=== PATIENT | female | born 1965 | race Caucasian/White ===

== ENCOUNTER → 2017-11-01 | Outpatient (CLI) | payer BC ==
--- NOTE | 2017-11-03 11:50 | MM ---
Reason for exam: screening (asymptomatic). History: Patient is postmenopausal, has history of other cancer at age 46, and is nulliparous. Family history of breast cancer in mother at age 70. Physical Findings: A clinical breast exam by your physician is recommended on an annual basis and results should be correlated with mammographic findings. MG Screening Mammo w CAD Bilateral CC and MLO view(s) were taken. There are scattered fibroglandular densities. No significant changes when compared with prior studies. ASSESSMENT: Negative, BI-RAD 1 RECOMMENDATION: Routine screening mammogram of both breasts in 1 year.
== END ==
LOC: RADMAMWWP 15:17
PROVIDERS: ATTEND Family Medicine
DX: Z12.31 Encounter for screening mammogram for malignant neoplasm of breast (principal)
CPT/HCPCS: 77067

== ENCOUNTER 2021-03-11 10:47 | Emergency (ER) | payer BC ==
[2021-03-11 11:45] VITALS: BP 118/81; PULSE 89; RESP 20; TEMP 98
[2021-03-11] MEDS ORDERED: SODIUM CHLORIDE 0.9% 1,000 ML IV STA (12:11)
[2021-03-11] MEDS ORDERED: ONDANSETRON 4 MG/2 ML VIAL IVP STA (12:11)
--- NOTE | 2021-03-11 12:20 | ED ---
General Adult HPI - General Chief complaint: Nausea/Vomiting/Diarrhea Stated complaint: vomiting Time Seen by Provider: 03/11/21 11:51 Source: patient Mode of arrival: wheelchair Limitations: no limitations - History of Present Illness Initial comments: 65-year-old female with a past medical history of Crohn's disease on Remicade presents to the emergency room for chief, no nausea vomiting. Patient states she cut her right index finger cleaning a fish tank last week. States that on Tuesday she started some redness over the area and her right arm started hurting. She went to her doctor on Tuesday who put her on Keflex and Bactrim. Patient states because of her Crohn's she does not tolerate oral antibiotics. States that since she started then she has had nausea vomiting. She then got her Covid booster yesterday and her symptoms worsened. patient is concerned she may need IV antibiotics for her fever as well as control of her nausea vomiting. Patient has no other complaints at this time including shortness of breath, chest pain, abdominal pain, nausea or vomiting, headache, or visual changes. - Related Data Home Medications Medication Instructions Recorded Confirmed Cephalexin [Keflex] 1,000 mg PO Q12HR 03/11/21 03/11/21 Sulfamethoxazole/Trimethoprim 1 tab PO Q12H 03/11/21 03/11/21 [Bactrim DS 800-160 mg] Previous Rx's Medication Instructions Recorded Bacitracin Zinc/Polymyxin B 1 applic TOPICAL TID 10 Days #15 gm 03/11/21 [Bacitracin-Polymyxin Ointment] Ondansetron [Zofran ODT] 4 mg PO Q8HR PRN #15 tab 03/11/21 Allergies Allergy/AdvReac Type Severity Reaction Status Date / Time No Known Allergies Allergy Verified 03/11/21 13:39 Review of Systems ROS Statement: Those systems with pertinent positive or pertinent negative responses have been documented in the HPI. ROS Other: All systems not noted in ROS Statement are negative. Past Medical History Past Medical History: Cancer Additional Past Medical History / Comment(s): crohns, kidney stones, skin cancer History of Any Multi-Drug Resistant Organisms: None Reported Past Surgical History: Appendectomy, Hysterectomy Past Psychological History: No Psychological Hx Reported Smoking Status: Never smoker Past Alcohol Use History: None Reported Past Drug Use History: Marijuana General Exam - General Exam Comments Initial Comments: there is a small laceration noted to the radial aspect of the right second digit measuring less than 1 cm. There is minimal erythema surrounding it consistent with granulation tissue. She has full range of motion of all digits. Full range motion of the hand and wrist and forearm. There is no edema or erythema of the finger, hand or forearm Limitations: no limitations General appearance: alert, in no apparent distress Head exam: Present: atraumatic Eye exam: Present: normal appearance, PERRL, EOMI. Absent: scleral icterus, conjunctival injection ENT exam: Present: normal exam, mucous membranes moist Neck exam: Present: normal inspection, full ROM. Absent: tenderness Respiratory exam: Present: normal lung sounds bilaterally. Absent: respiratory distress, wheezes Cardiovascular Exam: Present: regular rate, normal rhythm, normal heart sounds Extremities exam: Present: normal capillary refill (cap refill < 2 seconds in all digits of the right hand.), other Course Vital Signs 03/11/21 11:40 Temperature 98.0 F Pulse Rate 89 Respiratory 20 Rate Blood Pressure 118/81 O2 Sat by Pulse 97 Oximetry Medical Decision Making - Medical Decision Making HPI physical exam as documented. Vitals stable. Patient afebrile. No evidence of significant infection of the right second digit. There is a wound there however there is no spreading or streaking redness, swelling, or difficulty moving the fingers. Laboratory evaluation was initiated, unremarkable. Leukocytosis likely related to vomiting. Patient was also evaluated by Dr. Head who is agreeable. We will culture the area and continue patient on Keflex i nstead of Bactrim until that time. We will give Zofran and encourage her to take this after eating. She will follow up on culture results or return to the emergency room for worsening symptoms. - Lab Data Result diagrams: 03/11/21 12:27 03/11/21 12:27 Lab Results 03/11/21 03/11/21 Range/Units 12:27 12:27 WBC 13.0 H (3.8-10.6) k/uL RBC 4.25 (3.80-5.40) m/uL Hgb 13.4 (11.4-16.0) gm/dL Hct 39.5 (34.0-46.0) % MCV 93.0 (80.0-100.0) fL MCH 31.6 (25.0-35.0) pg MCHC 34.0 (31.0-37.0) g/dL RDW 12.4 (11.5-15.5) % Plt Count 282 (150-450) k/uL MPV 8.3 Neutrophils % 74 % Lymphocytes % 22 % Monocytes % 2 % Eosinophils % 1 % Basophils % 0 % Neutrophils # 9.7 H (1.3-7.7) k/uL Lymphocytes # 2.9 (1.0-4.8) k/uL Monocytes # 0.3 (0-1.0) k/uL Eosinophils # 0.1 (0-0.7) k/uL Basophils # 0.0 (0-0.2) k/uL Sodium 135 L (137-145) mmol/L Potassium 4.5 (3.5-5.1) mmol/L Chloride 109 H (98-107) mmol/L Carbon Dioxide 22 (22-30) mmol/L Anion Gap 4 mmol/L BUN 12 (7-17) mg/dL Creatinine 0.68 (0.52-1.04) mg/dL Est GFR (CKD-EPI)AfAm >90 (>60 ml/min/1.73 sqM) Est GFR (CKD-EPI)NonAf >90 (>60 ml/min/1.73 sqM) Glucose 115 H (74-99) mg/dL Calcium 9.2 (8.4-10.2) mg/dL Total Bilirubin 0.4 (0.2-1.3) mg/dL AST 27 (14-36) U/L ALT 12 (4-34) U/L Alkaline Phosphatase 64 (38-126) U/L Total Protein 6.9 (6.3-8.2) g/dL Albumin 4.0 (3.5-5.0) g/dL Lipase 179 (23-300) U/L Disposition Clinical Impression: Nausea & vomiting Disposition: HOME SELF-CARE Condition: Good Instructions (If sedation given, give patient instructions): Acute Nausea and Vomiting (ED) Additional Instructions: take Keflex one tablet every 6 hours. discontinue bactrim. Follow up on culture results. Return to the ER for any worsening symptoms. Prescriptions: Bacitracin Zinc/Polymyxin B [Bacitracin-Polymyxin Ointment] 1 applic TOPICAL TID 10 Days #15 gm Ondansetron [Zofran ODT] 4 mg PO Q8HR PRN #15 tab PRN Reason: Nausea Is patient prescribed a controlled substance at d/c from ED?: No Referrals: Ha Byrd MD [Primary Care Provider] - 1-2 days Time of Disposition: 13:49
[2021-03-11 12:33] LABS: Basophils % (A) 0 %; Eosinophils # (A) 0.1 k/uL (0-0.7); Eosinophils % (A) 1 %; HCT 39.5 % (34.0-46.0); HGB 13.4 gm/dL (11.4-16.0); Lymphocytes # (A) 2.9 k/uL (1.0-4.8); Lymphocytes % (A) 22 %; MCH 31.6 pg (25.0-35.0); Mean Platelet Volume 8.3; Monocytes # (A) 0.3 k/uL (0-1.0); Monocytes % (A) 2 %; Neutrophils # (A) 9.7 k/uL (1.3-7.7); Neutrophils % (A) 74 %; Platelet Count 282 k/uL (150-450); RBC 4.25 m/uL (3.80-5.40); RDW 12.4 % (11.5-15.5)
[2021-03-11 12:55] LABS: ALT 12 U/L (4-34); African American GFR (CKD) >90 (>60 ml/min/1.73 sqM); Anion Gap 4 mmol/L; Blood Urea Nitrogen 12 mg/dL (7-17); Calcium 9.2 mg/dL (8.4-10.2); Carbon Dioxide 22 mmol/L (22-30); Chloride 109 mmol/L (98-107); Glucose 115 mg/dL (74-99); Lipase 179 U/L (23-300); Non-African American GFR(CKD) >90 (>60 ml/min/1.73 sqM); Sodium 135 mmol/L (137-145); Total Bilirubin 0.4 mg/dL (0.2-1.3); Total Protein 6.9 g/dL (6.3-8.2)
[2021-03-11 12:56] LABS: AST 27 U/L (14-36); Potassium 4.5 mmol/L (3.5-5.1)
[2021-03-11 12:57] LABS: Alkaline Phosphatase 64 U/L (38-126)
--- NOTE | 2021-03-11 13:13 | XR ---
EXAMINATION TYPE: XR forearm RT DATE OF EXAM: 03/11/2021 CLINICAL HISTORY: Pain. TECHNIQUE: Two views of the right forearm are obtained. COMPARISON: None. FINDINGS: There is no acute fracture or dislocation seen in the right radius or ulna. The visualize d right elbow and wrist joints appear within normal limits. No suspicious focal lytic or sclerotic os seous lesion. The overlying soft tissue appears within normal limits. IMPRESSION: As above.
--- NOTE | 2021-03-11 13:14 | XR ---
Right hand HISTORY: Laceration index finger 3 views of the right hand Bone mineralization, joint spaces, alignment are maintained. There is no radiopaque foreign body. No fracture or dislocation. IMPRESSION: No acute bone abnormality is evident.
== END 2021-03-11 14:00 | disposition home or self-care (01) ==
LOC: EC 10:47
DX: R11.2 Nausea with vomiting, unspecified (principal); F12.90 Cannabis use, unspecified, uncomplicated; Z85.828 Personal history of other malignant neoplasm of skin; Z87.442 Personal history of urinary calculi; Z90.49 Acquired absence of other specified parts of digestive tract; Z90.710 Acquired absence of both cervix and uterus
CPT/HCPCS: 99284; 96374; 96361; 36415; 80053; 83690; 85025; 87070; 87205; 73090; 73130; J2405

== ENCOUNTER → 2022-02-02 | Outpatient (CLI) | payer BC ==
--- NOTE | 2022-02-03 20:54 | MM ---
Reason for Exam: Screening (asymptomatic). Last mammogram was performed 4 year(s) and 3 month(s) ago. Patient History: Menarche at age 13. Patient has no children. Left ovary removed at age 44. Right ovary removed at age 44. Hysterectomy at age 44. Postmenopausal. Other cancer, age 46. Mother had breast cancer, age 70. Risk Values: Rosaura 5 year model risk: 2.3%. NCI Lifetime model risk: 13.7%. Prior Study Comparison: 11/01/2017 Bilateral Screening Mammogram, [facility]. Tissue Density: There are scattered fibroglandular densities. Findings: Analyzed By CAD. There is no suspicious group of microcalcifications or new suspicious mass in either breast. Overall Assessment: Negative, BI-RAD 1 Management: Screening Mammogram of both breasts in 1 year. 1. Patient should continue monthly self breast exams. 2. A clinical breast exam by your physician is recommended on an annual basis. 3. This exam should not preclude additional follow-up of suspicious palpable abnormalities. Electronically signed and approved by: Amelia Kelly M.D. Radiologist
== END | disposition home or self-care (01) ==
LOC: RADMAMWWP 15:08
PROVIDERS: ATTEND Family Medicine
DX: Z12.31 Encounter for screening mammogram for malignant neoplasm of breast (principal); Z78.0 Asymptomatic menopausal state; Z80.3 Family history of malignant neoplasm of breast
CPT/HCPCS: 77063; 77067

== ENCOUNTER → 2022-03-12 | Outpatient (CLI) | payer BC ==
--- NOTE | 2022-03-13 14:16 | XR ---
EXAMINATION TYPE: XR chest 2V DATE OF EXAM: 03/12/2022 COMPARISON: None HISTORY: 56-year-old female positive TB skin test, K50.80,Z79.899 TECHNIQUE: Frontal and lateral views FINDINGS: The cardiomediastinal silhouette, aorta, and pulmonary vasculature are within normal limits. Hazy low er lung densities relating to overlying soft tissue. There is hyperinflation. No consolidation or ple ural effusion. IMPRESSION: Hyperinflation may reflect depth of inspiration or underlying emphysema. Otherwise, no acute process seen.
== END | disposition home or self-care (01) ==
LOC: RADXRMAIN 16:43
PROVIDERS: ATTEND Colon & Rectal Surgery
DX: K50.80 Crohn's disease of both small and large intestine without complications (principal); Z79.899 Other long term (current) drug therapy
CPT/HCPCS: 71046

== ENCOUNTER → 2024-08-17 | Outpatient (CLI) | payer BC | END | disposition home or self-care (01) | LOC: LABWHC1 15:50 | PROVIDERS: ATTEND Colon & Rectal Surgery | DX: Z11.1 Encounter for screening for respiratory tuberculosis (principal) | CPT/HCPCS: 36415; 86480 ==

== ENCOUNTER → 2024-08-22 | Outpatient (CLI) | payer BC ==
--- NOTE | 2024-08-22 15:32 | XR ---
EXAMINATION TYPE: XR chest 2V DATE OF EXAM: 08/22/2024 3:28 PM COMPARISON: 03/12/2022 CLINICAL INDICATION: Female, 59 years old with history of Z11.1 ENCOUNTER FOR SCREENING FOR RESPIRATO RY TUBE: Shortness of breath TECHNIQUE: XR chest 2V views of the chest are obtained. FINDINGS: Scattered senescent parenchymal changes noted. Hyperinflation compatible with COPD. No evidence for infiltrate. No evidence for atelectasis. Heart size is stable. Mediastinal structures are stable and grossly unremarkable. No evidence for hilar prominence. Degenerative changes dorsal spine. IMPRESSION: 1. No evidence for acute pulmonary disease. [facility], , 08/22/2024 3:30 PM
== END | disposition home or self-care (01) ==
LOC: RADXRMAIN 15:15
PROVIDERS: ATTEND Colon & Rectal Surgery
DX: Z11.1 Encounter for screening for respiratory tuberculosis (principal)
CPT/HCPCS: 71046